=== PATIENT | female | born 1955 | race Caucasian/White ===

== ENCOUNTER 2022-08-09 13:02 | Emergency (ER) | payer OTHER ==
[2022-08-09] MEDS ORDERED: FENTANYL CITR 100 MCG/2 ML ONE (14:06)
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
--- NOTE | 2022-08-09 14:44 | RAD REPORT ---
EXAM DESCRIPTION: RAD - Forearm Left - 08/09/2022 2:27 pm CLINICAL HISTORY: Pain COMPARISON: No comparisons FINDINGS/IMPRESSION: No acute fracture. No malalignment. No significant focal degenerative changes.
--- NOTE | 2022-08-09 14:44 | RAD REPORT ---
EXAM DESCRIPTION: RAD - Tib Fib Left - 08/09/2022 2:27 pm CLINICAL HISTORY: Pain COMPARISON: No comparisons FINDINGS/IMPRESSION: No acute fracture. No malalignment. Degenerative changes are present at the ank le.
--- NOTE | 2022-08-09 14:44 | RAD REPORT ---
EXAM DESCRIPTION: RAD - Chest Single View - 08/09/2022 2:27 pm CLINICAL HISTORY: Chest pain COMPARISON: <Comparisons> FINDINGS: Lines: None. Lungs: No evidence of edema or pneumonia. Pleural: No significant pleural effusions or pneumothorax. Cardiac: The heart size is within normal limits. Mediastinum: Within normal limits. Bones: No acute fractures. Other: None IMPRESSION: No acute cardiopulmonary disease.
[2022-08-09 14:45] LABS: Absolute Lymphocytes (CBC) 1.4 K/uL (0.7-4.9); Hematocrit 43.8 % (36.0-45.0); Lymphocytes % 8.4 % (15.3-44.8); MCV 95.7 fL (80-100); MPV 7.7 fL (7.6-11.3); RBC Red Blood Cell Count 4.57 M/uL (3.86-4.86)
[2022-08-09 14:46] LABS: Protime INR 0.99
[2022-08-09 15:10] LABS: Potassium 5.4 mmol/L (3.5-5.1); Troponin High Sensitivity 5.2 pg/mL (<58.9)
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
[2022-08-09] MEDS ORDERED: NA CHLORIDE 0.9% 500 ML ONE (15:50)
[2022-08-09] MEDS ORDERED: MORPHINE 4 MG/ML SYR ONE (15:50)
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
[2022-08-09 18:35] VITALS: BP 100/56; O2SAT 94
--- NOTE | 2022-08-11 15:11 | EKG ---
Test Date: 2022-08-09 Test Time: 14:00:42 Care Coordination Manager: MAREK MEASUREMENT RESULTS: Intervals: Rate: 96 IN: 136 QRSD: 68 QT: 350 QTc: 442 [place]: P: 43 IN: 136 QRS: -17 T: 45 INTERPRETIVE STATEMENTS: Normal sinus rhythm Normal ECG No previous ECG available for comparison Electronically Signed On 08-11-22 15:09:27 INTERACTIVE MEDIA DIRECTOR by Benedicto Pulido
== END 2022-08-09 17:12 | disposition home or self-care (01) ==
LOC: ER 13:02
DX: S22.31XA Fracture of one rib, right side, initial encounter for closed fracture (principal); S70.01XA Contusion of right hip, initial encounter; S80.12XA Contusion of left lower leg, initial encounter; E87.5 Hyperkalemia; V49.49XA Driver injured in collision with other motor vehicles in traffic accident, initial encounter; F17.210 Nicotine dependence, cigarettes, uncomplicated; I10 Essential (primary) hypertension; Z79.01 Long term (current) use of anticoagulants
CPT/HCPCS: 93005; 85025; 80048; 36415; 86900; 86850; 85610; 86901; 85730; 84484; 83880; 70450; 72125; 71260; 74177; 71045; 72170; 73502; 73090; 73590; 99285; Q9967; J3010; J7040